=== PATIENT | female | born 1980 | race Caucasian/White ===

== ENCOUNTER 2017-02-10 06:19 | Emergency (ER) | payer MEDICAID ==
[~2017-02-10] VITALS: Ht 157.5 cm; Wt 80.4 kg
[2017-02-10 06:21] VITALS: BP 107/72
[2017-02-10] MEDS ORDERED: KETOROLAC 30 MG/1 ML ONE (06:44)
[2017-02-10] MEDS ORDERED: KETOROLAC 30 MG/1 ML IM ONE (07:00)
[2017-02-10 07:13] LABS: HEMATOCRIT 39.2 % (34.6-47.8); HEMOGLOBIN 13.3 g/dL (11.7-16.4); WHITE BLOOD COUNT 6.4 x10^3/uL (3.4-10)
[2017-02-10 07:26] LABS: BLOOD UREA NITROGEN 19 mg/dL (7-18)
[2017-02-10 07:30] LABS: IS PT STATUS REG ER OR PRE ER? YES
== END 2017-02-10 08:23 | disposition home or self-care (01) ==
LOC: ED 07:39
DX: R07.89 Other chest pain (principal); J45.909 Unspecified asthma, uncomplicated
CPT/HCPCS: 36415; 71010; 80048; 82040; 83880; 84484; 84703; 85025; 85379; 93005; 96372; 99285; J1885

== ENCOUNTER 2018-04-07 12:04 | Emergency (ER) | payer MEDICAID ==
[~2018-04-07] VITALS: Ht 157.5 cm; Wt 59.0 kg
[2018-04-07] MEDS ORDERED: ALBUTEROL INH (12:52)
[2018-04-07] MEDS ORDERED: ONDANSETRON ODT 4 MG ONE (13:26)
[2018-04-07] MEDS ORDERED: ONDANSETRON ODT 4 MG PO ONE (13:30)
[2018-04-07 13:48] LABS: BASOPHILS # (AUTO) 0.03 x10^3/uL (0-0.1); BASOPHILS % (AUTO) 0 % (0-1); EOSINOPHILS # (AUTO) 0.19 x10^3/uL (0-0.4); EOSINOPHILS % (AUTO) 3 % (1-7); LYMPHOCYTES # (AUTO) 2.37 x10^3/uL (1-3.4); LYMPHOCYTES % (AUTO) 34 % (22-44); MD NO; MEAN CORPUSCULAR HEMOGLOBIN 28.3 pg (27.0-34.8); MEAN CORPUSCULAR HGB CONC 33.4 g/dL (32.4-35.8); MEAN CORPUSCULAR VOLUME 84.7 fL (80-100); MEAN PLATELET VOLUME 6.1 fL (7.4-10.4); MONOCYTES # (AUTO) 0.93 x10^3/uL (0.2-0.8); MONOCYTES % (AUTO) 13 % (2-9); NEUTROPHILS # (AUTO) 3.48 x10^3/uL (1.8-6.8); NEUTROPHILS % (AUTO) 50 % (42-75); PLATELET COUNT 403 x10^3/uL (130-400); RED BLOOD COUNT 4.47 x10^6/uL (3.82-5.3); RED CELL DISTRIBUTION WIDTH 13.6 % (9.6-15.2)
[2018-04-07 13:58] LABS: ALBUMIN 3.3 g/dL (3.4-5.0); ANION GAP 7 mmol/L (5-15); CALCIUM 8.5 mg/dL (8.5-10.1); CHLORIDE 106 mmol/L (98-107)
[2018-04-07 14:01] LABS: ALANINE AMINOTRANSFERASE 24 U/L (12-78); ALKALINE PHOSPHATASE 70 U/L (45-117); BILIRUBIN,TOTAL 0.3 mg/dL (0.2-1.0); TOTAL PROTEIN 7.7 g/dL (6.4-8.2)
[2018-04-07 16:31] VITALS: BP 102/59
== END 2018-04-07 16:32 | disposition home or self-care (01) ==
LOC: ED 14:30
DX: R55 Syncope and collapse (principal); J45.909 Unspecified asthma, uncomplicated; M54.30 Sciatica, unspecified side; Z87.891 Personal history of nicotine dependence; Z90.49 Acquired absence of other specified parts of digestive tract; Z90.710 Acquired absence of both cervix and uterus; Z98.51 Tubal ligation status
CPT/HCPCS: 36415; 74021; 80053; 83690; 84703; 85025; 93005; 99284; Q0162

== ENCOUNTER 2018-12-14 05:44 | Emergency (ER) | payer MEDICAID, OTHER ==
[~2018-12-14] VITALS: Ht 157.5 cm; Wt 77.2 kg
[2018-12-14 05:48] VITALS: BP 131/71
== END 2018-12-14 07:58 | disposition home or self-care (01) ==
LOC: ED 07:45
DX: K04.7 Periapical abscess without sinus (principal)
CPT/HCPCS: 96372; 99283; J1885

== ENCOUNTER 2019-09-03 22:32 | Emergency (ER) | payer MEDICAID ==
[~2019-09-03] VITALS: Ht 160 cm; Wt 70.5 kg
[~2019-09-03 22:32] MED LIST: ALBUTEROL INH
[2019-09-03 22:37] VITALS: BP 112/68
[2019-09-03] MEDS ORDERED: ACETAMINOPHEN 500 MG TABLET ONE (23:53)
[2019-09-04] MEDS ORDERED: ACETAMINOPHEN 325 MG TABLET PO ONE
--- NOTE | 2019-09-04 00:35 | NUR ---
DC EDUCATION PROVIDED, PT DEMONSTRATES UNDERSTANDING. PT AMBULATED STEADILY TO DC WITH RN AND SO
== END 2019-09-04 00:37 | disposition home or self-care (01) ==
LOC: ED 23:50
DX: J02.9 Acute pharyngitis, unspecified (principal); H66.93 Otitis media, unspecified, bilateral; J45.909 Unspecified asthma, uncomplicated; Z90.49 Acquired absence of other specified parts of digestive tract; Z90.710 Acquired absence of both cervix and uterus
CPT/HCPCS: 71045; 99283